=== PATIENT | male | born 1930 | race Caucasian/White ===

== ENCOUNTER 2020-05-04 09:22 | Inpatient (IN) | payer MEDICARE ==
[2020-05-04] VITALS (15 sets, daily range): BP systolic 135–197; BP diastolic 61–95
[~2020-05-04] VITALS: Ht 182.9 cm; Wt 106.5 kg
[2020-05-04] MEDS ORDERED: AMLO10TA4 PO (09:41)
[2020-05-04] MEDS ORDERED: PRAM113C TP (09:41)
[2020-05-04] MEDS ORDERED: TAMS0.4C97 PO (09:41)
[2020-05-04] MEDS ORDERED: POLY17PO29 PO (09:41)
[2020-05-04] MEDS ORDERED: LOPE2TAB27 PO (09:41)
[2020-05-04] MEDS ORDERED: MEMA10TA PO (09:41)
[2020-05-04] MEDS ORDERED: OLAN2.5T3 PO (09:41)
[2020-05-04] MEDS ORDERED: DOCU-109 PO (09:41)
[2020-05-04] MEDS ORDERED: MECL-75 PO (09:41)
[2020-05-04] MEDS ORDERED: CARB200T PO (09:41)
[2020-05-04] MEDS ORDERED: MAGN24003 PO (09:41)
[2020-05-04] MEDS ORDERED: ACET500T68 PO (09:41)
[2020-05-04] MEDS ORDERED: FLUV100C PO (09:41)
[2020-05-04] MEDS ORDERED: QUET400T52 PO (09:41)
[2020-05-04] MEDS ORDERED: MELA5TAB11 SL (09:41)
[2020-05-04] MEDS ORDERED: QUET25TA5 PO (09:41)
[2020-05-04] MEDS ORDERED: LACT1CAP19 PO (09:41)
[2020-05-04] MEDS ORDERED: ASPI-630 PO (09:41)
--- NOTE | 2020-05-04 09:54 | PDOC1 ---
History and Physical Date of Admission Date of Admission DATE: 05/04/20 TIME: 09:46 Identification/Chief Complaint Chief Complaint Fall, subdural hematoma Source Source: Chart review, Patient History of Present Illness History of Present Illness Patient is an 89-year-old male who presents as a transfer from [facility] for fall at his residential with subdural hematoma. He has a history of multiple falls at his residential, 56 since November 2019. Vitals are noted for hypertension of breath [facility]. Patient appears to be at high risk despite being in the nursing facility and supposedly using his walker. CT head findings showed right sided subdural hemorrhage without mass-effect. At present, patient hemodynamically stable and reportedly at baseline mentation. Will admit for medical management with neurosurgery consultation. Past Medical History Past Medical History Dementia, depression, hypertension, anxiety, trigeminal neuralgia, chronic pain, spondylosis, BPH Past Surgical History Past Surgical History: No pertinent history Family History Family History: Family History Unknown Social History Smoke: No ALCOHOL: none Drugs: None Current Medications Current Medications Active Scripts Active Reported Dermagesic Cream (Pramoxine/Zinc Oxide/Calamine) 113 Gm Cream..g. 1 Kat TP DAILY PRN 15 Days Loperamide (Loperamide Hcl) 2 Mg Tablet 4 Mg PO BID PRN Loperamide (Loperamide Hcl) 2 Mg Tablet 4 Mg PO BID PRN Quetiapine Fumarate ER (Quetiapine Fumarate) 400 Mg Tab.er.24h 50 Mg PO HS Tegretol (Carbamazepine) 200 Mg Tablet 2 Tab PO HS Fluvoxamine Maleate 100 Mg Cap.er.24h 0.25 Cap PO DAILY 30 Days Zyprexa (Olanzapine) 2.5 Mg Tablet 1 Tab PO Q6HRS PRN Culturelle (Lactobacillus Rhamnosus Gg) 1 Each Cap.sprink 1 Cap PO BID 30 Days Seroquel (Quetiapine Fumarate) 25 Mg Tablet 0.5 Tab PO BID Meclizine Hcl 25 Mg Tablet 1 Tab PO TID PRN Flomax (Tamsulosin Hcl) 0.4 Mg Cap.er.24h 0.4 Mg PO HS Norvasc (Amlodipine Besylate) 10 Mg Tablet 10 Mg PO DAILY Namenda (Memantine Hcl) 10 Mg Tablet 1 Tab PO BID Miralax (Polyethylene Glycol 3350) 17 Gm Powd.pack 1 Packet PO DAILY 2 Days dissolve in water Milk Of Magnesia (Magnesium Hydroxide) 2,400 Mg/10 Ml Oral.susp 2,400 Mg PO HS Melatonin 5 Mg Tab.subl 1 Tab SL QHS PRN 30 Days Colace (Docusate Sodium) 100 Mg Capsule 100 Mg PO BID Aspirin 81 Mg Tab.chew 1 Tab PO DAILY Acetaminophen 500 Mg Tablet 2 Tab PO PRN Q6HRS PRN 15 Days Allergies Allergies: Coded Allergies: enalaprilat (Verified Allergy, Unknown, 05/04/20) ROS Review of System GENERAL: No history of weight change, weakness or fevers. SKIN: No bruising, hair changes or rashes. EYES: No blurred, double or loss of vision. NOSE AND THROAT: No history of nosebleeds, hoarseness or sore throat. HEART: Denies chest pain, denies palpitations. LUNGS: Denies cough, hemoptysis, wheezing or shortness of breath. GASTROINTESTINAL: Denies nausea, vomiting, abdominal pain. GENITOURINARY: Denies dysuria, frequency, urgency, hematuria. NEUROLOGIC: Denies history of numbness, tingling, tremor or weakness. PSYCHIATRIC: Denies anxiety, denies depression. ENDOCRINE: No history of heat or cold intolerance, polyuria or polydipsia. EXTREMITIES: Denies muscle weakness, joint pain, pain on walking or stiffness. Physical Exam Physical Exam General: Alert, Oriented X2 Cooperative, No acute distress HEENT: PERRLA, EOMI Lungs: Clear to auscultation, Normal air movement Heart: RRR, no murmurs Cardiovascular: S1, S2 Abdomen: Normal bowel sounds, Soft, No tenderness Extremities: No clubbing, No cyanosis Skin: No rashes, No significant lesion Neuro: Normal speech, Normal tone, Sensation intact Psych/Mental Status: Mental status NL, Mood NL Images Images INDICATION: Reason: fall / Spl. Instructions: / History: . COMPARISON: April 28, 2020 TECHNIQUE: Axial CT images obtained through the head. One or more of the following individualized dose reduction techniques were utilized for this examination: 1. Automated exposure control; 2. Adjustment of the mA and/or kV according to patient size; 3. Use of iterative reconstruction technique. FINDINGS: Scalp cephalohematoma. Scattered foci of low density of the white matter. Nonspecific but can be seen with chronic small vessel ischemic disease. Prominence of ventricles and sulci which can be seen with age-related volume loss. Right-sided extra-axial hemorrhage measuring up to 4 mm in thickness. A significant amount of mass effect is not seen. There is approximately 1 mm of midline shift to the left but this was seen on prior as well. IMPRESSION: * Interval development of right-sided extra-axial hemorrhage which may be subdural in nature without a significant amount of mass effect at this time. Report called to the emergency department at 6:18 AM. * Scalp cephalohematoma. Electronically signed by: Marlon Garnica MD (05/04/2020 6:20 AM) [id number] INDICATION: Reason: fall / Spl. Instructions: / History: . COMPARISON: December 12, 2019 TECHNIQUE: Axial CT images obtained through the lumbar spine. One or more of the following individualized dose reduction techniques were utilized for this examination: 1. Automated exposure control; 2. Adjustment of the mA and/or kV according to patient size; 3. Use of iterative reconstruction technique. FINDINGS: Mild retrolisthesis of L3 on 4. Degenerative changes throughout the lumbar spine with disc osteophyte complexes as well as facet hypertrophy with central canal and neural foraminal stenosis. Mild grade 1 anterolisthesis of L2 on 3. Osseous demineralization. Severe calcific atherosclerosis. Bilateral renal lesions including one on the left that does not measure as simple density measuring 22 mm. IMPRESSION: * Osseous demineralization limits evaluation but no definite fracture line is seen. * Degenerative changes throughout the spine with multilevel central canal and neural foraminal stenosis. * Calcific atherosclerosis. * Bilateral renal lesions including one on the left that does not measure as a simple cyst at the partially visualized abdomen. Not formally evaluated on this exam. VTE Prophylaxis Ordered VTE Prophylaxis Devices: Yes VTE Pharmacological Prophylaxi: No Assessment/Plan Assessment/Plan Subdural hematoma Dementia Plan: Patient at baseline mentation with appropriate precautions provided for subdural hemorrhage Admitted to ICU for frequent neuro checks Consultation with neurosurgery Will try to maintain blood pressure less than 150/[address] head in AM Resume home medications FEN - Cardiac diet PPX - SCDs FULL CODE Dispo - inpatient for above Justifications for Admission Other Justification WESLEY BANEGAS MD May 04, 2020 09:54
[2020-05-04] MEDS ORDERED: MAGNESIUM HYDROXIDE 2,400 MG/30 ML ORAL.SUSP. PO PRN (10:30)
[2020-05-04] MEDS ORDERED: CALCIUM CARBONATE 500 MG TAB.CHEW PO PRN (10:30)
[2020-05-04] MEDS ORDERED: 0.9 % SODIUM CHLORIDE 10 ML DISP.SYRIN. IV PRN (10:30)
[2020-05-04] MEDS ORDERED: IBUPROFEN 400 MG TABLET. PO PRN (10:30)
[2020-05-04] MEDS ORDERED: BISACODYL 10 MG SUPP.RECT. PR PRN (10:30)
[2020-05-04] MEDS ORDERED: ACETAMINOPHEN 325 MG TABLET. PO PRN (10:30)
[2020-05-04] MEDS ORDERED: MAG HYDROX/ALUMINUM HYD/SIMETH 30 ML ORAL.SUSP PO PRN (10:30)
--- NOTE | 2020-05-04 14:17 | PDOC ---
Provider Note Date of Service: DATE: 05/04/20 TIME: 14:11 Provider Note patient seen and examined at 1300 consulted for SDH, s/p fall history of dementia alert, cooperative FLOREZ, no focal deficits CT with Right-sided extra-axial hemorrhage measuring up to 4 mm in thickness, no significant mass effect repeat CT head in AM D/W RN Justifications for Admission Other Justification Subdural hematoma STEVEN RODRIGUEZ MD May 04, 2020 14:17
[2020-05-04] MEDS: ONDANSETRON PF 4 MG/2 ML VIAL. IVP PRN (19:46)
[2020-05-05] VITALS (15 sets, daily range): BP systolic 119–146; BP diastolic 60–92
[2020-05-05] MEDS: ONDANSETRON PF 4 MG/2 ML VIAL. IVP PRN (04:46)
--- NOTE | 2020-05-05 07:45 | RAD ---
CT brain without contrast. HISTORY: Altered mental status, subdural hematoma CT scan of the brain was done without contrast. Comparison is made with a study from one day ago. The re is a bone defect in the occipital bone from a previous craniotomy on the right. There is motion ar tifact. An acute skull fracture is not identified. There is extracranial swelling in the parietal reg ion on the right. There is a small right subdural hematoma without change. There is no shift of the m idline or mass effect. Ventricles are dilated. There is diffuse atrophy. IMPRESSION: 1. Small right subdural hematoma without change from the prior study. PQRS Compliance Statement: One or more of the following individualized dose reduction techniques were utilized for this examinat ion: 1. Automated exposure control 2. Adjustment of the mA and/or kV according to patient size 3. Use of iterative reconstruction technique Electronically signed by: Gwyn Hoffman MD (05/05/2020 7:35 AM) [facility]
[2020-05-05] MEDS ORDERED: NON FORMULARY ITEM (Melatonin 1 TAB) SL PRN (10:15)
--- NOTE | 2020-05-05 10:15 | PDOC ---
[employer] PROGRESS NOTE Date of Service DOS: DATE: 05/05/20 TIME: 10:01 Chief Complaint Chief Complaint Assessment/Plan Subdural hematoma Dementia Plan: Patient at baseline mentation with appropriate precautions provided for subdural hemorrhage Admitted to ICU for frequent neuro checks Consultation with neurosurgery Will try to maintain blood pressure less than 150/[address] head in AM Resume home medications FEN - Cardiac diet PPX - SCDs FULL CODE Dispo - inpatient for above History of Present Illness History of Present Illness Patient is an 89-year-old male who presents as a transfer from [facility] for fall at his fpc with subdural hematoma. He has a history of multiple falls at his fpc, 56 since November 2019. Vitals are noted for hypertension of breath [facility]. Patient appears to be at high risk despite being in the nursing facility and supposedly using his walker. CT head findings showed right sided subdural hemorrhage without mass-effect. At present, patient hemodynamically stable and reportedly at baseline mentation. Will admit for medical management with neurosurgery consultation. 05/05: Patient seen in ICU. He is afebrile, blood pressure well controlled with nicardipine. Repeat CT head this morning showed stable small right subdural hematoma without change from the prior study. Will follow neurosurgery recommendations. Patient may discharge out of ICU today. He has had multiple falls over this past year, four I believe in the month of March alone. Unsure if he is safe to return to his current fpc. Will discuss with clinical social work therapist about other fpc options. Patient is in agreement, will try to reach out to son to confirm that he needs safer fpc option. Vitals/I&O Vitals/I&O: Vital Signs Date Time Temp Pulse Resp B/P (MAP) Pulse Ox O2 Delivery O2 Flow Rate FiO2 05/05/20 08:00 Room Air 05/05/20 07:00 80 23 119/66 (83) 96 05/05/20 04:00 99.1 99.1 I & O 0 05/04/20 05/04/20 05/05/20 15:00 23:00 07:00 Intake Total 0 ml 225 ml 231 ml Output Total 900 ml 300 ml 385 ml Balance -900 ml -75 ml -154 ml Physical Exam General: Alert, Cooperative, No acute distress Heart: Regular rate Lungs: Clear Abdomen: Normal bowel sounds, No tenderness Extremities: No clubbing, No cyanosis Skin: No rashes, No significant lesion Comment Review of Relevant I have reviewed the following items shena (where applicable) has been applied. Medications: Current Medications Medications (Trade) Dose Ordered Sig/Billie Route PRN Reason Start Time Stop Time Status Last Admin Dose Admin Nicardipine HCl 50 mg/Sodium Chloride 250 ml @ 25 mls/hr CONT PRN IV SEE I/O RECORD 05/04/20 10:15 05/05/20 07:25 Ondansetron HCl (Zofran) 4 mg PRN Q6HRS PRN IVP NAUSEA/VOMITING 05/04/20 10:30 05/05/20 04:46 Justifications for Admission Other Justification Subdural hematoma WESLEY BANEGAS MD May 05, 2020 10:15
[2020-05-05] MEDS: LACTOBACILLUS RHAMNOSUS GG 1 CAPSULE. PO SCH ×2 (10:55→20:17)
[2020-05-05] MEDS: POLYETHYLENE GLYCOL 3350 17 GM PACKET. PO SCH (10:55)
[2020-05-05] MEDS: MEMANTINE 10 MG TABLET. PO SCH ×2 (10:55→20:18)
[2020-05-05] MEDS: amLODIPine BESYLATE 10 MG TABLET PO SCH (10:55)
[2020-05-05] MEDS ORDERED: QUEtiapine 25 MG TABLET. PO SCH (11:00)
[2020-05-05] MEDS ORDERED: ZINC OXIDE 20% TOPICAL OINTMENT 28GM TUBE. TP PRN (11:00)
[2020-05-05] MEDS ORDERED: MECLIZINE HCL 12.5 MG TABLET. PO PRN (11:00)
[2020-05-05] MEDS: ASPIRIN CHEWABLE 81 MG TABLET. PO SCH (12:21)
[2020-05-05] MEDS: DOCUSATE SODIUM 100 MG CAPSULE. PO SCH (20:17)
[2020-05-05] MEDS: QUEtiapine 50 MG TAB.ER.24H. PO SCH (20:18)
[2020-05-05] MEDS: TAMSULOSIN 0.4 MG CAP.ER.24H. PO SCH (20:18)
[2020-05-05] MEDS: carBAMazepine 200 MG TABLET PO SCH (20:18)
[2020-05-06 03:29] VITALS: BP 125/65
[2020-05-06 07:00] VITALS: BP 143/71
[2020-05-06] MEDS: QUEtiapine 25 MG TABLET. PO SCH ×2 (08:32→15:23)
[2020-05-06] MEDS: MEMANTINE 10 MG TABLET. PO SCH ×2 (08:32→20:18)
[2020-05-06] MEDS: LACTOBACILLUS RHAMNOSUS GG 1 CAPSULE. PO SCH ×2 (08:32→20:18)
[2020-05-06] MEDS: ASPIRIN CHEWABLE 81 MG TABLET. PO SCH (08:33)
[2020-05-06] MEDS: amLODIPine BESYLATE 10 MG TABLET PO SCH (08:33)
[2020-05-06] MEDS: DOCUSATE SODIUM 100 MG CAPSULE. PO SCH ×2 (08:37→20:32)
[2020-05-06] MEDS: POLYETHYLENE GLYCOL 3350 17 GM PACKET. PO SCH (08:37)
--- NOTE | 2020-05-06 09:16 | PDOC ---
Provider Note Date of Service: DATE: 05/06/20 TIME: 09:13 Provider Note LATE ENTRY - Patient seen and examined 05-05-20 at 1100 no new complaints FLOREZ, No focal deficits follow up CT Small right subdural hematoma without change from the prior study. will repeat CT in a week D/W RN Justifications for Admission Other Justification Subdural hematoma STEVEN RODRIGUEZ MD May 06, 2020 09:16
[2020-05-06 11:00] VITALS: BP 117/66
--- NOTE | 2020-05-06 11:20 | PDOC ---
[employer] PROGRESS NOTE Date of Service DOS: DATE: 05/06/20 TIME: 11:16 Chief Complaint Chief Complaint Assessment/Plan Subdural hematoma Dementia Plan: Patient at baseline mentation with appropriate precautions provided for subdural hemorrhage Admitted to ICU for frequent neuro checks Consultation with neurosurgery Will try to maintain blood pressure less than 150/[address] head in AM Resume home medications FEN - Cardiac diet PPX - SCDs FULL CODE Dispo - inpatient for above History of Present Illness History of Present Illness Patient is an 89-year-old male who presents as a transfer from [facility] for fall at his fci with subdural hematoma. He has a history of multiple falls at his fci, 56 since November 2019. Vitals are noted for hypertension of breath [facility]. Patient appears to be at high risk despite being in the nursing facility and supposedly using his walker. CT head findings showed right sided subdural hemorrhage without mass-effect. At present, patient hemodynamically stable and reportedly at baseline mentation. Will admit for medical management with neurosurgery consultation. 05/05: Patient seen in ICU. He is afebrile, blood pressure well controlled with nicardipine. Repeat CT head this morning showed stable small right subdural hematoma without change from the prior study. Will follow neurosurgery recommendations. Patient may discharge out of ICU today. He has had multiple falls over this past year, four I believe in the month of March alone. Unsure if he is safe to return to his current fci. Will discuss with social work administrator about other fci options. Patient is in agreement, will try to reach out to son to confirm that he needs safer fci option. 05/06 Patient seen and examined, patient is pleasantly confused DW RN Chart reviewed Vitals/I&O Vitals/I&O: Vital Signs Date Time Temp Pulse Resp B/P (MAP) Pulse Ox O2 Delivery O2 Flow Rate FiO2 05/06/20 08:33 82 143/71 05/06/20 08:00 Room Air 05/06/20 07:00 97.9 18 93 97.9 I & O 05/05/20 05/05/20 05/06/20 15:00 23:00 07:00 Intake Total 141 ml 50 ml Output Total 440 ml 160 ml 150 ml Balance -299 ml -160 ml -100 ml Physical Exam General: Alert, Cooperative, No acute distress Heart: Regular rate Lungs: Clear Abdomen: Normal bowel sounds, No tenderness Extremities: No clubbing, No cyanosis Skin: No rashes, No significant lesion Review of Systems Review of Systems: Denies NV Denies headache Assessment and Plan Assessmemt and Plan 05/06/2020 A:Subdural hematoma Dementia P: 1. environmental monitoring specialist 2. Home med 3. Full code 4. DVT prophylaxis 5. PT/OT 6. Discharge, deposition pending Comment Review of Relevant I have reviewed the following items shena (where applicable) has been applied. Medications: Current Medications Medications (Trade) Dose Ordered Sig/Billie Route PRN Reason Start Time Stop Time Status Last Admin Dose Admin Carbamazepine (TEGretol) 400 mg HS PO 05/05/20 21:00 05/05/20 20:18 Docusate Sodium (Colace) 100 mg BID PO 05/05/20 21:00 05/05/20 20:17 Tamsulosin HCl (Flomax) 0.4 mg HS PO 05/05/20 21:00 05/05/20 20:18 Quetiapine Fumarate (SEROquel XR) 50 mg HS PO 05/05/20 21:00 05/05/20 20:18 Quetiapine Fumarate (SEROquel) 12.5 mg BID@0900,1500 PO 05/06/20 09:00 05/06/20 08:32 Justifications for Admission Other Justification Subdural hematoma RAFIA ARIAS III DO May 06, 2020 11:20
--- NOTE | 2020-05-06 12:21 | NUR ---
SS following for discharge planning. SS reviewed pt chart and discussed with pt RN. Pt is from [facility], ; fax [phone], and is currently on room air. PT/OT ordered. COVID19 test ordered. Pt's family requesting that pt return to [place] at discharge but may need correction unit at facility pending PT/OT recommendations. SS will continue to follow for discharge planning.
[2020-05-06 15:00] VITALS: BP 127/69
[2020-05-06 19:00] VITALS: BP 152/77
[2020-05-06] MEDS: QUEtiapine 50 MG TAB.ER.24H. PO SCH (20:18)
[2020-05-06] MEDS: TAMSULOSIN 0.4 MG CAP.ER.24H. PO SCH (20:18)
[2020-05-06] MEDS: carBAMazepine 200 MG TABLET PO SCH (20:18)
[2020-05-06 22:47] VITALS: BP 133/71
[2020-05-07 02:59] VITALS: BP 138/80
[2020-05-07] MEDS: OLANZapine 2.5 MG TABLET PO PRN ×2 (06:52→22:07)
[2020-05-07 07:00] VITALS: BP 163/70
[2020-05-07] MEDS: MEMANTINE 10 MG TABLET. PO SCH ×2 (08:34→20:22)
[2020-05-07] MEDS: amLODIPine BESYLATE 10 MG TABLET PO SCH (08:34)
[2020-05-07] MEDS: DOCUSATE SODIUM 100 MG CAPSULE. PO SCH ×2 (08:35→20:22)
[2020-05-07] MEDS: ASPIRIN CHEWABLE 81 MG TABLET. PO SCH (08:35)
[2020-05-07] MEDS: QUEtiapine 25 MG TABLET. PO SCH ×2 (08:35→16:52)
[2020-05-07] MEDS: LACTOBACILLUS RHAMNOSUS GG 1 CAPSULE. PO SCH ×2 (08:35→20:21)
[2020-05-07] MEDS: POLYETHYLENE GLYCOL 3350 17 GM PACKET. PO SCH (09:00)
--- NOTE | 2020-05-07 10:11 | PDOC ---
[employer] PROGRESS NOTE Date of Service DOS: DATE: 05/07/20 TIME: 10:06 Chief Complaint Chief Complaint Subdural hematoma Dementia History of Present Illness History of Present Illness Patient is an 89-year-old male who presents as a transfer from [facility] for fall at his half-way with subdural hematoma. He has a history of multiple falls at his half-way, 56 since November 2019. Vitals are noted for hypertension of breath [facility]. Patient appears to be at high risk despite being in the nursing facility and supposedly using his walker. CT head findings showed right sided subdural hemorrhage without mass-effect. At present, patient hemodynamically stable and reportedly at baseline mentation. Will admit for medical management with neurosurgery consultation. 05/05: Patient seen in ICU. He is afebrile, blood pressure well controlled with nicardipine. Repeat CT head this morning showed stable small right subdural hematoma without change from the prior study. Will follow neurosurgery recommendations. Patient may discharge out of ICU today. He has had multiple falls over this past year, four I believe in the month of March alone. Unsure if he is safe to return to his current half-way. Will discuss with public health social worker about other half-way options. Patient is in agreement, will try to reach out to son to confirm that he needs safer half-way option. 05/06 Patient seen and examined, patient is pleasantly confused SUNNY RN Chart reviewed 05/07 -Patient seen and examined. -Sunny RN. Sunny oil field caser. -Chart reviewed. Vitals/I&O Vitals/I&O: Vital Signs Date Time Temp Pulse Resp B/P (MAP) Pulse Ox O2 Delivery O2 Flow Rate FiO2 05/07/20 08:34 83 163/70 05/07/20 08:00 Room Air 05/07/20 07:00 97.5 18 95 97.5 I & O 05/06/20 05/06/20 05/07/20 15:00 23:00 07:00 Intake Total 650 ml 350 ml 0 ml Output Total 350 ml Balance 650 ml 0 ml 0 ml Physical Exam General: Alert, Cooperative, No acute distress Heart: Regular rate Lungs: Clear Abdomen: Normal bowel sounds, No tenderness Extremities: No clubbing, No cyanosis Skin: No rashes, No significant lesion Review of Systems Review of Systems: Denies fever. Denies ecchymosis. Assessment and Plan Assessmemt and Plan 1/12: Assessment Subdural hematoma Dementia Plan 1 Cardiac monitoring 2 PT/OT 3 Home meds 4 DVT prophylaxis 5 Probable plan d/c to [facility] in the morning Comment Review of Relevant I have reviewed the following items shena (where applicable) has been applied. Justifications for Admission Other Justification Subdural hematoma RAFIA ARIAS III DO May 07, 2020 10:11
[2020-05-07 10:31] VITALS: BP 145/70
--- NOTE | 2020-05-07 13:07 | NUR ---
SS following up with discharge planning. SS reviewed pt chart and discussed with pt RN. Pt is currently on room air. COVID19 test pending. PT/OT [facility]. Pt's son reported that he would like pt to return to [facility], ; fax [phone], at discharge. SS phoned and faxed clinical to [facility]. [place] reported that they would have to review clinical and discuss with pt's son and notify SS of there recommendations. SS will continue to follow for discharge planning.
[2020-05-07 14:23] VITALS: BP 98/68
[2020-05-07 19:29] VITALS: BP 158/82
[2020-05-07] MEDS: TAMSULOSIN 0.4 MG CAP.ER.24H. PO SCH (20:22)
[2020-05-07] MEDS: QUEtiapine 50 MG TAB.ER.24H. PO SCH (20:22)
[2020-05-07] MEDS: carBAMazepine 200 MG TABLET PO SCH (20:22)
[2020-05-07 22:40] VITALS: BP 156/83
--- NOTE | 2020-05-07 23:00 | NUR ---
Assume care from Aydee QUILES, pt resting quietly in bed, denies pain at this time, vss, call light in reach will cont to monitor pt safety and status. pmrn
[2020-05-08] VITALS (7 sets, daily range): BP systolic 129–153; BP diastolic 60–112
[2020-05-08] MEDS: OLANZapine 2.5 MG TABLET PO PRN (06:16)
--- NOTE | 2020-05-08 08:16 | PDOC ---
[employer] PROGRESS NOTE Date of Service DOS: DATE: 05/08/20 TIME: 08:09 Chief Complaint Chief Complaint Subdural hematoma Dementia History of Present Illness History of Present Illness Patient is an 89-year-old male who presents as a transfer from [facility] for fall at his senior living with subdural hematoma. He has a history of multiple falls at his senior living, 56 since November 2019. Vitals are noted for hypertension of breath [facility]. Patient appears to be at high risk despite being in the nursing facility and supposedly using his walker. CT head findings showed right sided subdural hemorrhage without mass-effect. At present, patient hemodynamically stable and reportedly at baseline mentation. Will admit for medical management with neurosurgery consultation. 05/05: Patient seen in ICU. He is afebrile, blood pressure well controlled with nicardipine. Repeat CT head this morning showed stable small right subdural hematoma without change from the prior study. Will follow neurosurgery recommendations. Patient may discharge out of ICU today. He has had multiple falls over this past year, four I believe in the month of March alone. Unsure if he is safe to return to his current senior living. Will discuss with bilingual social worker about other senior living options. Patient is in agreement, will try to reach out to son to confirm that he needs safer senior living option. 05/06 Patient seen and examined, patient is pleasantly confused SUNNY RN Chart reviewed 05/07 -Patient seen and examined. -Sunny RN. Sunny geriatric case manager. -Chart reviewed. 05/08 -Patient seen and examined, patient is pleasantly confused -SUNNY RN -Chart reviewed Vitals/I&O Vitals/I&O: Vital Signs Date Time Temp Pulse Resp B/P (MAP) Pulse Ox O2 Delivery O2 Flow Rate FiO2 05/08/20 02:55 98.5 70 19 152/112 (125) 93 Room Air 98.5 I & O 05/07/20 05/07/20 05/08/20 15:00 23:00 07:00 Intake Total 650 ml 700 ml 50 ml Output Total 650 ml 300 ml Balance 650 ml 50 ml -250 ml Physical Exam General: Alert, Cooperative, No acute distress Heart: Regular rate Lungs: Clear Abdomen: Normal bowel sounds, No tenderness Extremities: No clubbing, No cyanosis Skin: No rashes, No significant lesion Review of Systems Review of Systems: 05/08 -Denies N/V, no ecchymosis Assessment and Plan Assessmemt and Plan 05/08 A: Subdural hematoma and dementia P: gambling monitor DVT prophylaxis Home meds OT/PT Probable plan is to d/c to [facility] Comment Review of Relevant I have reviewed the following items shena (where applicable) has been applied. Justifications for Admission Other Justification Subdural hematoma RAFIA ARIAS III DO May 08, 2020 08:16
[2020-05-08] MEDS: POLYETHYLENE GLYCOL 3350 17 GM PACKET. PO SCH (08:28)
[2020-05-08] MEDS: ASPIRIN CHEWABLE 81 MG TABLET. PO SCH (08:28)
[2020-05-08] MEDS: MEMANTINE 10 MG TABLET. PO SCH ×2 (08:29→21:42)
[2020-05-08] MEDS: QUEtiapine 25 MG TABLET. PO SCH ×2 (08:29→16:21)
[2020-05-08] MEDS: LACTOBACILLUS RHAMNOSUS GG 1 CAPSULE. PO SCH ×2 (08:29→21:42)
[2020-05-08] MEDS: DOCUSATE SODIUM 100 MG CAPSULE. PO SCH ×2 (08:29→21:42)
[2020-05-08] MEDS: amLODIPine BESYLATE 10 MG TABLET PO SCH (08:30)
--- NOTE | 2020-05-08 12:16 | NUR ---
SS following up with discharge planning. SS reviewed pt chart and discussed with pt RN. Pt is currently on room air. COVID19 test negative. PT/OT recommended [facility] unit. Pt is from [facility]. SS spoke with Yudy at [facility] and was notified that she discussed with pt's son and all parties are agreeable to that pt will go to [facility] unit at [place] for short term rehabilitation prior to returning to Assisted Living. Referral was phoned and faxed to [facility]. SS discussed with Dr. Guadarrama. Per physician, probable discharge to [facility] unit tomorrow. SS will continue to follow for discharge planning.
--- NOTE | 2020-05-08 15:09 | NUR ---
SS following up with discharge planning. [facility], ; fax [phone], contacted SS and reported that they cannot accept pt for custodial unit and cannot meet pt's needs. They reported that they would contact Assisted Living and notify them. SS contacted Yudy at [facility], ; fax [phone], and left message notifying her that pt has been declined for custodial unit at [facility]. SS currently awaiting return call. SS will continue to follow for discharge planning.
--- NOTE | 2020-05-08 16:31 | NUR ---
SS following up with discharge planning. SS received call from Yudy at [facility] stating that pt needed to go to assisted unit. SS contacted pt's son and discussed. Pt's son requested referrals to [facility], [id number]; fax [phone], and [facility], ; fax [phone]. SS phoned and faxed referrals as requested. SS will continue to follow for discharge planning.
[2020-05-08] MEDS: TAMSULOSIN 0.4 MG CAP.ER.24H. PO SCH (21:42)
[2020-05-08] MEDS: QUEtiapine 50 MG TAB.ER.24H. PO SCH (21:42)
[2020-05-08] MEDS: carBAMazepine 200 MG TABLET PO SCH (21:43)
[2020-05-09 03:10] VITALS: BP 161/89
[2020-05-09] MEDS: OLANZapine 2.5 MG TABLET PO PRN ×2 (05:36→15:04)
[2020-05-09 07:00] VITALS: BP 173/86
[2020-05-09] MEDS: POLYETHYLENE GLYCOL 3350 17 GM PACKET. PO SCH (09:30)
[2020-05-09] MEDS: MEMANTINE 10 MG TABLET. PO SCH (09:31)
[2020-05-09] MEDS: amLODIPine BESYLATE 10 MG TABLET PO SCH (09:31)
[2020-05-09] MEDS: ASPIRIN CHEWABLE 81 MG TABLET. PO SCH (09:31)
[2020-05-09] MEDS: QUEtiapine 25 MG TABLET. PO SCH ×2 (09:31→15:04)
[2020-05-09] MEDS: LACTOBACILLUS RHAMNOSUS GG 1 CAPSULE. PO SCH (09:31)
[2020-05-09] MEDS: DOCUSATE SODIUM 100 MG CAPSULE. PO SCH (09:32)
--- NOTE | 2020-05-09 10:34 | PDOC ---
[employer] PROGRESS NOTE Date of Service DOS: DATE: 05/09/20 TIME: 10:31 Chief Complaint Chief Complaint Subdural hematoma Dementia History of Present Illness History of Present Illness Patient is an 89-year-old male who presents as a transfer from [facility] for fall at his senior living with subdural hematoma. He has a history of multiple falls at his senior living, 56 since November 2019. Vitals are noted for hypertension of breath [facility]. Patient appears to be at high risk despite being in the nursing facility and supposedly using his walker. CT head findings showed right sided subdural hemorrhage without mass-effect. At present, patient hemodynamically stable and reportedly at baseline mentation. Will admit for medical management with neurosurgery consultation. 05/05: Patient seen in ICU. He is afebrile, blood pressure well controlled with nicardipine. Repeat CT head this morning showed stable small right subdural hematoma without change from the prior study. Will follow neurosurgery recommendations. Patient may discharge out of ICU today. He has had multiple falls over this past year, four I believe in the month of March alone. Unsure if he is safe to return to his current senior living. Will discuss with social media intern about other senior living options. Patient is in agreement, will try to reach out to son to confirm that he needs safer senior living option. 05/06 Patient seen and examined, patient is pleasantly confused SUNNY RN Chart reviewed 05/07 -Patient seen and examined. -Sunny RN. Sunny case management specialist. -Chart reviewed. 05/08 -Patient seen and examined, patient is pleasantly confused -SUNNY RN -Chart reviewed 05/08 -Patient seen and examined, patient is pleasantly confused -Chart reviewed -SUNNY RN Vitals/I&O Vitals/I&O: Vital Signs Date Time Temp Pulse Resp B/P (MAP) Pulse Ox O2 Delivery O2 Flow Rate FiO2 05/09/20 09:31 77 173/86 05/09/20 08:00 Room Air 05/09/20 07:00 98.1 18 92 98.1 I & O 05/08/20 05/08/20 05/09/20 15:00 23:00 07:00 Intake Total 600 ml 410 ml 200 ml Output Total 500 ml 500 ml Balance 600 ml -90 ml -300 ml Physical Exam General: Alert, Cooperative, No acute distress Heart: Regular rate, No murmurs Lungs: Clear Abdomen: Normal bowel sounds, No tenderness Extremities: No clubbing, No cyanosis Skin: No rashes, No significant lesion Review of Systems Review of Systems: 05/08 -Denies N/V, no fever Assessment and Plan Assessmemt and Plan 08/05 A: -Subdural hematoma -Dementia P: -Full code -Home meds -DVT prophylaxis -Appreciate sub-specialist input -Probably d/c to [facility] facility today Comment Review of Relevant I have reviewed the following items shena (where applicable) has been applied. Justifications for Admission Other Justification Subdural hematoma RAFIA ARIAS III DO May 09, 2020 10:34
[2020-05-09 11:00] VITALS: BP 130/82
--- NOTE | 2020-05-09 11:01 | NUR ---
SS following up with discharge planning. SS reviewed pt chart and discussed with pt RN. Pt is currently on room air. COVID19 negative. PT/OT recommended senior care unit. [facility] declined pt for senior care unit. [facility] reported that they are not accepting admissions at this time. Pt accepted at [facility], ; fax [phone]. Anticipating discharge today to [facility]. Pt's son notified. SS will continue to follow for discharge planning.
--- NOTE | 2020-05-09 11:58 | SNU/HH DC ---
DISCHARGE ORDERS DISCHARGE INFORMATION: CONDITION ON DISCHARGE: Stable CODE STATUS: Code Status: Full [facility]: SNF STAY <30 DAYS: Yes HOSPICE: HOSPICE: No HOSPICE EVAL & TREAT: No LTAC: ADMIT TO LTAC: No POST DISCHARGE ORDERS: DIET AFTER DISCHARGE: Cardiac TREATMENT/EQUIPMENT ORDERS: Physical Therapy For: Evalulation/Treatment Occupational Therapy For: Evaluation/Treatment DISCHARGE MEDICATIONS: Home Meds Reported Medications Pramoxine/Zinc Oxide/Calamine (Dermagesic Cream) 113 Gm Cream..g., 1 OSCAR TP DAILY PRN for INFLAMMATION for 15 Days, #113 GM 0 Refills 05/04/20 Quetiapine Fumarate (Quetiapine Fumarate ER) 400 Mg Tab.er.24h, 50 MG PO HS for psychosis, TAB.SR 05/04/20 Carbamazepine (TEGRETOL) 200 Mg Tablet, 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, #60 TAB 1 Refill 05/04/20 Fluvoxamine Maleate (FLUVOXAMINE MALEATE) 100 Mg Cap.er.24h, 0.25 CAP PO DAILY for OCD for 30 Days, #8 CAP 0 Refills 05/04/20 Olanzapine (ZYPREXA) 2.5 Mg Tablet, 1 TAB PO Q6HRS PRN for ANXIETY / AGITATION, #30 TAB 1 Refill 05/04/20 Lactobacillus Rhamnosus Gg (CULTURELLE) 1 Each Cap.sprink, 1 CAP PO BID for probiotic for 30 Days, #60 CAP 0 Refills 05/04/20 Quetiapine Fumarate (SEROQUEL) 25 Mg Tablet, 0.5 TAB PO BID for psychosis, #30 TAB 2 Refills 05/04/20 Meclizine Hcl (MECLIZINE HCL) 25 Mg Tablet, 1 TAB PO TID PRN for dizziness, #90 TAB 05/04/20 Tamsulosin Hcl (FLOMAX) 0.4 Mg Cap.er.24h, 0.4 MG PO HS for BPH, TAB 05/04/20 Amlodipine Besylate (NORVASC) 10 Mg Tablet, 10 MG PO DAILY for HTN, TAB 05/04/20 Memantine Hcl (NAMENDA) 10 Mg Tablet, 1 TAB PO BID for dementia, #180 TAB 1 Refill 05/04/20 Polyethylene Glycol 3350 (MIRALAX) 17 Gm Powd.pack, 1 PACKET PO DAILY for constipation for 2 Days, #2 PACKET 0 Refills dissolve in water 05/04/20 Magnesium Hydroxide (MILK OF MAGNESIA) 2,400 Mg/10 Ml Oral.susp, 2400 MG PO HS for constipation, MISC 05/04/20 Melatonin (MELATONIN) 5 Mg Tab.subl, 1 TAB SL QHS PRN for INSOMNIA for 30 Days, #30 TAB 0 Refills 05/04/20 Docusate Sodium (COLACE) 100 Mg Capsule, 100 MG PO BID for constipation, CAP 05/04/20 Aspirin (ASPIRIN) 81 Mg Tab.chew, 1 TAB PO DAILY for prophalaxis, #30 TAB 3 Refills 05/04/20 Acetaminophen (ACETAMINOPHEN) 500 Mg Tablet, 2 TAB PO PRN Q6HRS PRN for pain or fever for 15 Days, #60 TAB 0 Refills 05/04/20 Discontinued Reported Medications Loperamide Hcl (LOPERAMIDE) 2 Mg Tablet, 4 MG PO BID PRN for DIARRHEA, TAB 05/04/20 Loperamide Hcl (LOPERAMIDE) 2 Mg Tablet, 4 MG PO BID PRN for DIARRHEA, TAB 05/04/20 RAFIA ARIAS III DO May 09, 2020 11:58
--- NOTE | 2020-05-09 13:15 | SNU/HH DC ---
DISCHARGE ORDERS DISCHARGE INFORMATION: DISCHARGE DATE: May 09, 2020 CONDITION ON DISCHARGE: Stable CODE STATUS: Code Status: Full [facility]: SNF STAY <30 DAYS: Yes POST DISCHARGE ORDERS: DIET AFTER DISCHARGE: Cardiac TREATMENT/EQUIPMENT ORDERS: Physical Therapy For: Evalulation/Treatment Occupational Therapy For: Evaluation/Treatment DISCHARGE MEDICATIONS: Home Meds Reported Medications Pramoxine/Zinc Oxide/Calamine (Dermagesic Cream) 113 Gm Cream..g., 1 OSCAR TP DAILY PRN for INFLAMMATION for 15 Days, #113 GM 0 Refills 05/04/20 Quetiapine Fumarate (Quetiapine Fumarate ER) 400 Mg Tab.er.24h, 50 MG PO HS for psychosis, TAB.SR 05/04/20 Carbamazepine (TEGRETOL) 200 Mg Tablet, 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, #60 TAB 1 Refill 05/04/20 Fluvoxamine Maleate (FLUVOXAMINE MALEATE) 100 Mg Cap.er.24h, 0.25 CAP PO DAILY for OCD for 30 Days, #8 CAP 0 Refills 05/04/20 Olanzapine (ZYPREXA) 2.5 Mg Tablet, 1 TAB PO Q6HRS PRN for ANXIETY / AGITATION, #30 TAB 1 Refill 05/04/20 Lactobacillus Rhamnosus Gg (CULTURELLE) 1 Each Cap.sprink, 1 CAP PO BID for probiotic for 30 Days, #60 CAP 0 Refills 05/04/20 Quetiapine Fumarate (SEROQUEL) 25 Mg Tablet, 0.5 TAB PO BID for psychosis, #30 TAB 2 Refills 05/04/20 Meclizine Hcl (MECLIZINE HCL) 25 Mg Tablet, 1 TAB PO TID PRN for dizziness, #90 TAB 05/04/20 Tamsulosin Hcl (FLOMAX) 0.4 Mg Cap.er.24h, 0.4 MG PO HS for BPH, TAB 05/04/20 Amlodipine Besylate (NORVASC) 10 Mg Tablet, 10 MG PO DAILY for HTN, TAB 05/04/20 Memantine Hcl (NAMENDA) 10 Mg Tablet, 1 TAB PO BID for dementia, #180 TAB 1 Refill 05/04/20 Polyethylene Glycol 3350 (MIRALAX) 17 Gm Powd.pack, 1 PACKET PO DAILY for constipation for 2 Days, #2 PACKET 0 Refills dissolve in water 05/04/20 Magnesium Hydroxide (MILK OF MAGNESIA) 2,400 Mg/10 Ml Oral.susp, 2400 MG PO HS for constipation, MISC 05/04/20 Melatonin (MELATONIN) 5 Mg Tab.subl, 1 TAB SL QHS PRN for INSOMNIA for 30 Days, #30 TAB 0 Refills 05/04/20 Docusate Sodium (COLACE) 100 Mg Capsule, 100 MG PO BID for constipation, CAP 05/04/20 Aspirin (ASPIRIN) 81 Mg Tab.chew, 1 TAB PO DAILY for prophalaxis, #30 TAB 3 Refills 05/04/20 Acetaminophen (ACETAMINOPHEN) 500 Mg Tablet, 2 TAB PO PRN Q6HRS PRN for pain or fever for 15 Days, #60 TAB 0 Refills 05/04/20 Discontinued Reported Medications Loperamide Hcl (LOPERAMIDE) 2 Mg Tablet, 4 MG PO BID PRN for DIARRHEA, TAB 05/04/20 Loperamide Hcl (LOPERAMIDE) 2 Mg Tablet, 4 MG PO BID PRN for DIARRHEA, TAB 05/04/20 RAFIA ARIAS III DO May 09, 2020 13:15
--- NOTE | 2020-05-09 13:28 | NUR ---
SS following up with discharge planning. Discharge orders received for [facility], ; [phone]. SS phoned and faxed discharge orders to [facility]. Pt will discharge today and go to [facility] at 1600. [facility] to provide transportation. Pt, pt's RN, and pt's son notified.
[2020-05-09 15:00] VITALS: BP 142/93
--- NOTE | 2020-05-09 16:31 | NUR ---
Discharge Note: CHUCK JAUREGUI Discharge instructions and discharge home medications reviewed with Other facility and a copy given. All questions have been answered and understanding verbalized. Patient discharged to [facility] with transportation via wheelchair. Report called to Nayely at [facility] at [phone]. Son Wilian called and advised of transfer as well.
== END 2020-05-09 16:28 | DRG 84 ==
LOC: 1 WEST ICU 09:22 → 2 NORTH 05-05 17:52
PROVIDERS: ADMIT Internal Medicine; ATTEND Internal Medicine
DX: S06.5X9A Traumatic subdural hemorrhage with loss of consciousness of unspecified duration, initial encounter (principal); F03.90 Unspecified dementia, unspecified severity, without behavioral disturbance, psychotic disturbance, mood disturbance, and anxiety; S06.2X9A Diffuse traumatic brain injury with loss of consciousness of unspecified duration, initial encounter; I10 Essential (primary) hypertension; M48.00 Spinal stenosis, site unspecified; N40.0 Benign prostatic hyperplasia without lower urinary tract symptoms; Y92.129 Unspecified place in nursing home as the place of occurrence of the external cause; Z91.81 History of falling; F32.9 Major depressive disorder, single episode, unspecified; F41.9 Anxiety disorder, unspecified; G89.29 Other chronic pain; W18.39XA Other fall on same level, initial encounter; Y93.89 Activity, other specified; Y92.89 Other specified places as the place of occurrence of the external cause; Y99.8 Other external cause status; Z20.822 Contact with and (suspected) exposure to COVID-19
CPT/HCPCS: 70450; 99285; J2405; J3490; J7050; U0003; 97530-GO; 97530-GP; 97535-GO; G0378; J7030